=== PATIENT | male | born 1940 | race Caucasian/White ===

== ENCOUNTER 2018-07-16 19:51 | Inpatient (IN) | payer MEDICARE, OTHER ==
[~2018-07-16] VITALS: Ht 175.3 cm; Wt 68.2 kg
[2018-07-16] MEDS ORDERED: diltiazem 5mg/ml 5ml inj. IV ONE (20:25)
[2018-07-16] MEDS ORDERED: diltiazem 30mg tablet PO ONE (20:25)
[2018-07-16 21:21] LABS: PARTIAL THROMBOPLASTIN TIME 27 SECONDS (22-32); PROTHROMBIN TIME 10.6 SECONDS (9.0-12.0)
[2018-07-16 21:30] LABS: ALANINE AMINOTRANSFERASE 23 U/L (12-78); ALBUMIN 3.4 G/DL (3.4-5.0); ALKALINE PHOSPHATASE 84 IU/L (46-116); ANION GAP 8 (8-16); ASPARTATE AMINO TRANSFERASE 19 U/L (10-37); BILIRUBIN,TOTAL 0.2 MG/DL (0.1-1.0); BLOOD UREA NITROGEN 15 MG/DL (7-18); BUN/CREATININE RATIO 13.5 (5.4-32.0); CALCIUM 8.3 MG/DL (8.5-10.1); CHLORIDE 100 MMOL/L (99-107); CREATININE 1.11 MG/DL (0.60-1.10); GLUCOSE 129 MG/DL (70-104); POTASSIUM 4.5 MMOL/L (3.5-5.1); SODIUM 133 MMOL/L (135-145); TOTAL CARBON DIOXIDE 25.1 MMOL/L (24-32); TOTAL PROTEIN 6.7 G/DL (6.4-8.2); eGFR 64 ML/MIN
[2018-07-16 22:00] LABS: HEMATOCRIT 35.4 % (42.0-52.0); HEMOGLOBIN 11.8 g/dl (14.0-17.9); MEAN CORPUSCULAR HEMOGLOBIN 32.1 PG (27.0-31.0); MEAN CORPUSCULAR HGB CONC 33.2 g/dL (33.0-36.5); MEAN CORPUSCULAR VOLUME 96.8 FL (78-98); MEAN PLATELET VOLUME 7.5 FL (7.4-10.4); PLATELET COUNT 360 X10'3 (140-440); RED BLOOD COUNT 3.66 X10'6 (4.70-6.10); RED CELL DISTRIBUTION WIDTH 14.4 % (11.5-14.5); WHITE BLOOD COUNT 5.6 X10'3 (4.5-11.0)
[2018-07-16] MEDS ORDERED: ATOR40TA PO (22:36)
[2018-07-16] MEDS ORDERED: LISI-600 PO (22:36)
[2018-07-16] MEDS ORDERED: HYDR12.5 PO (22:36)
[2018-07-16] MEDS ORDERED: CLOP75TA15 PO (22:36)
[2018-07-16] MEDS ORDERED: AMLO10TA PO (22:36)
[2018-07-16 22:51] LABS: PLATELET ESTIMATE NORMAL; TOTAL CELLS COUNTED 100
[2018-07-16] MEDS ORDERED: magnesium hydroxide 30ml (MOM) UD suspension PO PRN (23:20)
[2018-07-16] MEDS ORDERED: ondansetron/PF 4mg/2ml inj IV PRN (23:20)
[2018-07-16] MEDS ORDERED: mag hydrox/Alum hydrox/simeth 30ml oral suspension PO PRN (23:20)
[2018-07-16] MEDS ORDERED: acetaminophen 325mg tablet PO PRN (23:20)
[2018-07-17] VITALS (7 sets, daily range): BP systolic 103–128; BP diastolic 56–72
--- NOTE | 2018-07-17 | NUR ---
noticed ekg change, Dr Adrian made aware. Appears to be first degree. EKG ordered. Tech completing.
[2018-07-17] MEDS: diltiazem 30mg tablet PO SCH ×4 (02:27→21:13)
--- NOTE | 2018-07-17 05:50 | NUR ---
Patient arrived from ER accompanied by LUMBER STICKER Mary Ellen. Patient safely ambulated ad dane to bed. Patient alert, oriented, comfortable. Patient states being pain free, no shortness of breath, no feelings of palpations, dizziness, nausea. Lungs clear, normal heart sounds s1s2, normal radial/DP pulses. Pupils chiquita 4mm bilateral. Vitals stable. Tele monitor attached.
[2018-07-17 06:36] LABS: ALANINE AMINOTRANSFERASE 18 U/L (12-78); ALBUMIN 3.2 G/DL (3.4-5.0); ALKALINE PHOSPHATASE 77 IU/L (46-116); ANION GAP 7 (8-16); ASPARTATE AMINO TRANSFERASE 18 U/L (10-37); BILIRUBIN,TOTAL 0.3 MG/DL (0.1-1.0); BLOOD UREA NITROGEN 15 MG/DL (7-18); CALCIUM 8.5 MG/DL (8.5-10.1); CHLORIDE 104 MMOL/L (99-107); GLUCOSE 102 MG/DL (70-104); POTASSIUM 4.3 MMOL/L (3.5-5.1); SODIUM 139 MMOL/L (135-145); TOTAL CARBON DIOXIDE 27.8 MMOL/L (24-32); TOTAL PROTEIN 6.5 G/DL (6.4-8.2); eGFR 72 ML/MIN
[2018-07-17 06:37] LABS: MEAN CORPUSCULAR HEMOGLOBIN 33.2 PG (27.0-31.0); MEAN CORPUSCULAR HGB CONC 34.4 g/dL (33.0-36.5); MEAN CORPUSCULAR VOLUME 96.3 FL (78-98); MEAN PLATELET VOLUME 7.6 FL (7.4-10.4); PLATELET COUNT 342 X10'3 (140-440); RED BLOOD COUNT 3.63 X10'6 (4.70-6.10); RED CELL DISTRIBUTION WIDTH 14.2 % (11.5-14.5); WHITE BLOOD COUNT 5.4 X10'3 (4.5-11.0)
--- NOTE | 2018-07-17 06:48 | NUR ---
Problems reprioritized. Patient report given, questions answered & plan of care reviewed with AMY Bloom.
--- NOTE | 2018-07-17 07:07 | NUR ---
Patient in room PCU 3020. I have received report from MICAH REYES and had the opportunity to ask questions and assume patient care.
[2018-07-17 07:24] LABS: PLATELET ESTIMATE NORMAL; TOTAL CELLS COUNTED 100
[2018-07-17] MEDS: heparin, porcine 5000 units/ml vial SQ SCH ×2 (07:51→21:14)
[2018-07-17] MEDS: clopidogrel 75mg tablet PO SCH (07:52)
[2018-07-17] MEDS: lisinopril 20mg tablet PO SCH (07:52)
[2018-07-17] MEDS ORDERED: potassium Cl 40MEQ/NS 500ml 500 ML IV PRN ×2 (10:20)
[2018-07-17] MEDS ORDERED: magnesium 4gm in 100ml NS 100 ML IV PRN (10:20)
[2018-07-17] MEDS ORDERED: magnesium Cl slow-release 64mg tablet PO PRN (10:20)
[2018-07-17] MEDS ORDERED: potassium Cl 20 mEq SR tablet PO PRN ×2 (10:20)
[2018-07-17] MEDS ORDERED: metoprolol tartrate 1mg/ml inj IV PRN (15:00)
[2018-07-17] MEDS ORDERED: nitroGLYCERIN 0.4mg SUBLingual tab SL PRN (15:00)
[2018-07-17] MEDS ORDERED: aminophylline 250mg/10ml inj. IV PRN (15:00)
[2018-07-17] MEDS ORDERED: regadenoson 0.4mg/5ml syringe IV PRN (15:00)
--- NOTE | 2018-07-17 18:11 | NUR ---
Problems reprioritized. Patient report given, questions answered & plan of care reviewed with AMY BRENNER.
[2018-07-17] MEDS ORDERED: atorvastatin 20mg tablet PO SCH (21:00)
[2018-07-18] VITALS (13 sets, daily range): BP systolic 106–145; BP diastolic 58–90
[2018-07-18 06:13] LABS: HEMATOCRIT 35.7 % (42.0-52.0); HEMOGLOBIN 11.9 g/dl (14.0-17.9); MEAN CORPUSCULAR HEMOGLOBIN 32.4 PG (27.0-31.0); MEAN CORPUSCULAR HGB CONC 33.4 g/dL (33.0-36.5); MEAN PLATELET VOLUME 7.5 FL (7.4-10.4); PLATELET COUNT 335 X10'3 (140-440); RED BLOOD COUNT 3.68 X10'6 (4.70-6.10); RED CELL DISTRIBUTION WIDTH 14.5 % (11.5-14.5); WHITE BLOOD COUNT 4.8 X10'3 (4.5-11.0)
[2018-07-18 06:25] LABS: ALANINE AMINOTRANSFERASE 19 U/L (12-78); ALBUMIN 3.2 G/DL (3.4-5.0); ALKALINE PHOSPHATASE 75 IU/L (46-116); ANION GAP 8 (8-16); ASPARTATE AMINO TRANSFERASE 20 U/L (10-37); BILIRUBIN,TOTAL 0.7 MG/DL (0.1-1.0); BLOOD UREA NITROGEN 18 MG/DL (7-18); BUN/CREATININE RATIO 18.2 (5.4-32.0); CALCIUM 8.5 MG/DL (8.5-10.1); CHLORIDE 103 MMOL/L (99-107); CREATININE 0.99 MG/DL (0.60-1.10); GLUCOSE 101 MG/DL (70-104); PHOSPHORUS 3.2 MG/DL (2.3-4.5); POTASSIUM 4.1 MMOL/L (3.5-5.1); SODIUM 138 MMOL/L (135-145); TOTAL CARBON DIOXIDE 27.1 MMOL/L (24-32); TOTAL PROTEIN 6.4 G/DL (6.4-8.2); eGFR 73 ML/MIN
--- NOTE | 2018-07-18 06:26 | NUR ---
Patient in room PCU 3020. I have received report from AMY Ojeda and had the opportunity to ask questions and assume patient care.
[2018-07-18 06:47] LABS: PLATELET ESTIMATE NORMAL; TOTAL CELLS COUNTED 100
[2018-07-18] MEDS ORDERED: diltiazem CD 120mg capsule (once-daily) PO SCH (08:00)
[2018-07-18] MEDS: lisinopril 20mg tablet PO SCH (08:43)
[2018-07-18] MEDS: clopidogrel 75mg tablet PO SCH (08:43)
[2018-07-18] MEDS: heparin, porcine 5000 units/ml vial SQ SCH (08:44)
[2018-07-18] MEDS ORDERED: regadenoson 0.4mg/5ml syringe IV ONE (11:18)
[2018-07-18] MEDS ORDERED: aminophylline inj. 10 ML IV ONE (11:18)
[2018-07-18] MEDS ORDERED: NITR0.4T51 SL (13:43)
[2018-07-18] MEDS ORDERED: CARCD120C PO (13:43)
[2018-07-18] MEDS ORDERED: LEVO50TA8 PO (13:47)
--- NOTE | 2018-07-18 16:50 | NUR ---
Pt discharged to home with all belongings, in private vehicle, accompanied by family. Discharge instructions and medications reviewed. Medications called in to [facility] pharmacy in [place], [place]. IV DC'd, cannula intact. Pt instructed to follow up with Dr Guajardo for Event Monitor and PCP. Pt escorted to front lobby via wheelchair by PCT.
== END 2018-07-18 16:45 | disposition home or self-care (01) | DRG 281 ==
LOC: ER 19:53 → ED HOLD 23:20 → PCU 3S 07-17 05:41 → OBSVTOIN 07-17 15:47
PROVIDERS: ADMIT Internal Medicine; ATTEND Family Medicine
PROC: 4A02XM4 Measurement of Cardiac Total Activity, External Approach (ICD-10-PCS; principal; 2018-07-18)
PROC: 3E033HZ Introduction of Radioactive Substance into Peripheral Vein, Percutaneous Approach (ICD-10-PCS; 2018-07-18)
DX: I21.A1 Myocardial infarction type 2 (principal); I47.1 Supraventricular tachycardia; I50.32 Chronic diastolic (congestive) heart failure; I44.0 Atrioventricular block, first degree; E03.9 Hypothyroidism, unspecified; I25.10 Atherosclerotic heart disease of native coronary artery without angina pectoris; I11.0 Hypertensive heart disease with heart failure; D72.821 Monocytosis (symptomatic); D72.810 Lymphocytopenia; Z95.1 Presence of aortocoronary bypass graft
CPT/HCPCS: 36415; 78452; 80053; 83735; 83880; 84100; 84443; 84484; 85025; 85610; 85730; 87070; 93005; 93017; 93306; 99291; A9500; G0378; J0280; J1644; J3490